=== PATIENT | female | born 1975 | race Two or more races ===

== ENCOUNTER 2020-03-11 00:05 | Emergency (ER) | payer MEDICAID ==
[~2020-03-11] VITALS: Ht 170.2 cm; Wt 70.3 kg
[2020-03-11 03:57] LABS: Basophils # (auto) 0 10 ^3/uL (0-0.2); Basophils % (auto) 0.4 % (0.0-2.0); Eosinophils # (auto) 0.1 10 ^3/uL (0-0.8); Eosinophils % (auto) 1.8 % (0.0-7.0); Hematocrit 38.1 % (36.0-46.0); Hemoglobin 12.7 g/dL (12.2-16.2); Lymphocytes % (auto) 31.4 % (10.0-50.0); Mean Corpuscular Hemoglobin 29.6 pg (28.0-32.0); Mean Corpuscular Hgb Conc. 33.3 g/dL (32.0-36.0); Mean Corpuscular Volume 88.9 fL (80.0-100.0); Monocytes # (auto) 0.5 10 ^3/uL (0-1.3); Monocytes % (auto) 8.3 % (0.0-12.0); Neutrophils # (auto) 3.6 10 ^3/uL (1.6-8.6); Neutrophils % (auto) 58.1 % (37.0-80.0); Nucleated Red Blood Cells % 0.1 %; Platelet Count (auto) 206 10^3/uL (140-450); Red Blood Cells 4.29 10^6/uL (4.0-5.20); Red Cell Distribution Width 13.1 % (11.8-14.3); White Blood Cell 6.2 10^3/uL (4.4-10.8)
[2020-03-11] MEDS ORDERED: cefTRIAXone W LIDOCAINE 1 GM IM IM ONE (08:45)
[2020-03-11] MEDS ORDERED: CLINDAMYCIN 600 MG/4 ML VL IM ONE (08:45)
[2020-03-11] MEDS ORDERED: InsuLIN REG 1unit/0.01ml Soln (100units/ml) SC ONE (08:45)
[2020-03-11] MEDS ORDERED: cefTRIAXone 1GM/50ML D5W 50 ML IV ONE (08:45)
[2020-03-11] MEDS ORDERED: cefTRIAXone SOD 1,000 MG VL ONE (09:23)
[2020-03-11 09:28] LABS: Albumin 3.5 g/dL (3.4-5.0)
[2020-03-11] MEDS ORDERED: LIDOCAINE 1% HCL (LOCAL ANESTH.) INJ 20ML MDV IJ ONE (09:30)
[2020-03-11] MEDS ORDERED: cefTRIAXone SOD 1,000 MG VL IM ONE (09:30)
[2020-03-11 09:31] LABS: BUN/Creatinine Ratio 22.7; Bilirubin, Total 0.4 mg/dL (0.2-1.0); Total Protein 7.9 g/dL (6.4-8.2)
[2020-03-11 09:36] VITALS: BP 106/77
== END 2020-03-11 09:46 | disposition home or self-care (01) ==
LOC: ER 00:08
DX: L03.116 Cellulitis of left lower limb (principal); E11.65 Type 2 diabetes mellitus with hyperglycemia
CPT/HCPCS: 36415; 80053; 82962; 85025; 96372; 99284; J0696; J1815

== ENCOUNTER 2020-05-11 22:07 | Inpatient (IN) | payer MEDICAID ==
[~2020-05-11] VITALS: Ht 160 cm; Wt 65.1 kg
[2020-05-11 22:51] LABS: Basophils # (auto) 0 10 ^3/uL (0-0.2); Basophils % (auto) 0.3 % (0.0-2.0); Eosinophils # (auto) 0.1 10 ^3/uL (0-0.8); Eosinophils % (auto) 0.9 % (0.0-7.0); Hematocrit 36.5 % (36.0-46.0); Hemoglobin 12.5 g/dL (12.2-16.2); Lymphocytes # (auto) 1.1 10 ^3/uL (0.4-5.4); Lymphocytes % (auto) 12.3 % (10.0-50.0); Mean Corpuscular Hemoglobin 29.5 pg (28.0-32.0); Mean Corpuscular Hgb Conc. 34.3 g/dL (32.0-36.0); Monocytes # (auto) 0.6 10 ^3/uL (0-1.3); Neutrophils # (auto) 7.1 10 ^3/uL (1.6-8.6); Neutrophils % (auto) 79.5 % (37.0-80.0); Nucleated Red Blood Cells % 0.1 %; Red Blood Cells 4.24 10^6/uL (4.0-5.20); Red Cell Distribution Width 13.3 % (11.8-14.3); White Blood Cell 8.9 10^3/uL (4.4-10.8)
[2020-05-11] MEDS ORDERED: MORPHINE SULFATE 4 MG/ML SYR/VIAL IV ONE (23:00)
[2020-05-11 23:05] LABS: Urine Bacteria FEW /hpf (None Seen); Urine Blood 1+ /uL (Negative); Urine Specific Gravity 1.023 (1.001-1.035); Urine WBC 788 /hpf (0 - 5); Urine WBC Clumps PRESENT /hpf (None Seen)
[2020-05-11 23:12] LABS: Albumin 3.6 g/dL (3.4-5.0); Potassium 3.8 mmol/L (3.5-5.1)
[2020-05-11 23:16] LABS: BUN/Creatinine Ratio 22.6; Bilirubin, Total 0.7 mg/dL (0.2-1.0); Total Protein 8.4 g/dL (6.4-8.2)
[2020-05-11] MEDS ORDERED: ACETAMINOPHEN 325 MG TAB PO ONE (23:45)
[2020-05-11] MEDS ORDERED: ONDANSETRON HCL 4 MG/2 ML VIAL IV ONE (23:45)
[2020-05-11] MEDS ORDERED: cefTRIAXone 1GM/50ML D5W 50 ML IV ONE (23:45)
[2020-05-12] MEDS ORDERED: DEXTROSE (50%) 50ML SYRG IV PRN ×2 (02:30→12:00)
[2020-05-12] MEDS ORDERED: MORPHINE SULFATE 4 MG/ML SYR/VIAL IV PRN (02:30)
[2020-05-12] MEDS ORDERED: ONDANSETRON HCL 4 MG/2 ML VIAL IV PRN (02:30)
[2020-05-12] MEDS: SODIUM CHLORIDE 0.9% 1,000 ML IV SCH ×2 (02:30→19:10)
[2020-05-12] MEDS ORDERED: NITROGLYCERIN 0.4 MG SL TAB SL PRN (02:30)
[2020-05-12] MEDS ORDERED: MORPHINE SULFATE INJECTION 2 MG/ML SYRG IV PRN (02:30)
[2020-05-12] MEDS: ACCU-CHEK COMFORT CURVE STRIP VI SCH ×4 (03:59→22:00)
[2020-05-12] MEDS: InsuLIN REG 1unit/0.01ml Soln (100units/ml) SC SCH ×4 (03:59→22:00)
[2020-05-12 04:22] VITALS: BP 120/71
[2020-05-12] MEDS ORDERED: INSLISPI SC (06:37)
[2020-05-12] MEDS ORDERED: INFLUENZA QUAD 2020-2021 0.5 ML SYRG IM ONE (06:45)
[2020-05-12] MEDS: PANTOPRAZOLE 40 MG/10 ML VIAL INJ IV SCH (08:34)
[2020-05-12] MEDS: ENOXAPARIN SOD 40 MG/0.4 ML SYRINGE SC SCH (08:34)
[2020-05-12] MEDS: cefTRIAXone 1GM/50ML D5W 50 ML IV SCH (08:34)
[2020-05-12 09:00] VITALS: BP 103/69
[2020-05-12 12:50] VITALS: BP 129/81
[2020-05-12 14:00] VITALS: BP 100/62
[2020-05-12 16:08] VITALS: BP 106/66
[2020-05-12] MEDS: ACETAMINOPHEN 325 MG TAB PO PRN (20:54)
[2020-05-12 22:00] VITALS: BP 133/82
[2020-05-12] MEDS: HYDROcodone-ACET 5/325MG TAB PO PRN (22:32)
[2020-05-13 05:00] VITALS: BP 127/84
[2020-05-13] MEDS: SODIUM CHLORIDE 0.9% 1,000 ML IV SCH ×2 (05:53→11:28)
[2020-05-13] MEDS: ACCU-CHEK COMFORT CURVE STRIP VI SCH ×4 (06:32→21:47)
[2020-05-13] MEDS: InsuLIN REG 1unit/0.01ml Soln (100units/ml) SC SCH ×4 (06:33→21:48)
[2020-05-13 07:33] LABS: Basophils # (auto) 0 10 ^3/uL (0-0.2); Basophils % (auto) 0.1 % (0.0-2.0); Eosinophils # (auto) 0 10 ^3/uL (0-0.8); Eosinophils % (auto) 0.4 % (0.0-7.0); Hematocrit 32.4 % (36.0-46.0); Hemoglobin 10.9 g/dL (12.2-16.2); Lymphocytes # (auto) 0.7 10 ^3/uL (0.4-5.4); Lymphocytes % (auto) 10.5 % (10.0-50.0); Mean Corpuscular Hemoglobin 29.4 pg (28.0-32.0); Mean Corpuscular Hgb Conc. 33.8 g/dL (32.0-36.0); Monocytes # (auto) 0.7 10 ^3/uL (0-1.3); Monocytes % (auto) 11.1 % (0.0-12.0); Neutrophils # (auto) 4.9 10 ^3/uL (1.6-8.6); Neutrophils % (auto) 77.9 % (37.0-80.0); Red Blood Cells 3.72 10^6/uL (4.0-5.20); Red Cell Distribution Width 13.3 % (11.8-14.3); White Blood Cell 6.3 10^3/uL (4.4-10.8)
[2020-05-13 07:53] LABS: Potassium 4.1 mmol/L (3.5-5.1)
[2020-05-13 08:04] LABS: Albumin 2.8 g/dL (3.4-5.0); BUN/Creatinine Ratio 30.6; Bilirubin, Total 0.6 mg/dL (0.2-1.0); Calcium 8.6 mg/dL (8.5-10.1); Total Protein 7.1 g/dL (6.4-8.2)
[2020-05-13] MEDS: cefTRIAXone 1GM/50ML D5W 50 ML IV SCH (08:25)
[2020-05-13 09:00] VITALS: BP 112/68
[2020-05-13] MEDS: ENOXAPARIN SOD 40 MG/0.4 ML SYRINGE SC SCH (09:53)
[2020-05-13] MEDS: PANTOPRAZOLE 40 MG/10 ML VIAL INJ IV SCH (09:53)
[2020-05-13] MEDS: HYDROcodone-ACET 5/325MG TAB PO PRN (12:50)
[2020-05-13 13:00] VITALS: BP 132/79
[2020-05-13] MEDS ORDERED: INSULIN LANTUS (GLARGINE) 1 /0.01ml (100units/ml) SC ONE (13:45)
[2020-05-13] MEDS ORDERED: MAGNESIUM CITRATE SOLUTION 300 ML BTL PO ONE (13:45)
[2020-05-13 17:00] VITALS: BP 126/77
[2020-05-13] MEDS: DOCUSATE SOD 100 MG CAP PO SCH (21:47)
[2020-05-13 22:00] VITALS: BP 135/83
[2020-05-13] MEDS: ACETAMINOPHEN 325 MG TAB PO PRN (23:35)
[2020-05-14 05:00] VITALS: BP 111/60
[2020-05-14] MEDS: ACCU-CHEK COMFORT CURVE STRIP VI SCH ×2 (06:07→11:30)
[2020-05-14] MEDS: SODIUM CHLORIDE 0.9% 1,000 ML IV SCH (06:07)
[2020-05-14] MEDS: InsuLIN REG 1unit/0.01ml Soln (100units/ml) SC SCH ×2 (06:10→11:30)
[2020-05-14 09:00] VITALS: BP 132/73
[2020-05-14] MEDS: cefTRIAXone 1GM/50ML D5W 50 ML IV SCH (09:00)
[2020-05-14] MEDS: DOCUSATE SOD 100 MG CAP PO SCH (09:41)
[2020-05-14] MEDS: ENOXAPARIN SOD 40 MG/0.4 ML SYRINGE SC SCH (09:41)
[2020-05-14] MEDS ORDERED: INSULIN LANTUS (GLARGINE) 1 /0.01ml (100units/ml) SC SCH (10:00)
[2020-05-14 13:54] VITALS: BP 133/75
[2020-05-14] MEDS ORDERED: PANT40TA2 PO (14:25)
[2020-05-14] MEDS ORDERED: NITR100C6 PO (14:25)
[2020-05-14] MEDS ORDERED: INSLANTI SC (14:25)
[2020-05-14 15:38] VITALS: BP 124/85
[2020-05-14 16:43] VITALS: BP 141/85
== END 2020-05-14 16:45 | disposition home or self-care (01) | DRG 720 ==
LOC: ER 22:09 → TELE 22:10 → TELE-EAST 05-12 04:30 → TELE-WESTW 05-12 13:57 → WEST WING 05-13 16:05
PROVIDERS: ADMIT Nurse Practitioner Family; ATTEND Internal Medicine
DX: A41.9 Sepsis, unspecified organism (principal); N10 Acute pyelonephritis; K44.9 Diaphragmatic hernia without obstruction or gangrene; E11.65 Type 2 diabetes mellitus with hyperglycemia; Z20.822 Contact with and (suspected) exposure to COVID-19; Z79.4 Long term (current) use of insulin; Z23 Encounter for immunization; K59.00 Constipation, unspecified
CPT/HCPCS: 36415; 74176; 80053; 81001; 81025; 82150; 82962; 83036; 83605; 83690; 85025; 87040; 87086; 87088; 87186; 87426; 96365; 96375; C9113; G0378; J0696; J1815; J2405

== ENCOUNTER 2020-06-03 23:41 | Emergency (ER) | payer MEDICAID ==
[~2020-06-03] VITALS: Ht 162.6 cm; Wt 65.3 kg
[~2020-06-03 23:41] MED LIST: INSLANTI SC; INSLISPI SC; NITR100C6 PO; PANT40TA2 PO
[2020-06-04 01:40] LABS: Basophils # (auto) 0 10 ^3/uL (0-0.2); Basophils % (auto) 0.3 % (0.0-2.0); Eosinophils # (auto) 0 10 ^3/uL (0-0.8); Eosinophils % (auto) 0.4 % (0.0-7.0); Hematocrit 35.5 % (36.0-46.0); Hemoglobin 11.9 g/dL (12.2-16.2); Lymphocytes # (auto) 0.4 10 ^3/uL (0.4-5.4); Lymphocytes % (auto) 4.3 % (10.0-50.0); Mean Corpuscular Hemoglobin 28.7 pg (28.0-32.0); Mean Corpuscular Hgb Conc. 33.6 g/dL (32.0-36.0); Mean Corpuscular Volume 85.6 fL (80.0-100.0); Monocytes # (auto) 0.6 10 ^3/uL (0-1.3); Monocytes % (auto) 6.2 % (0.0-12.0); Neutrophils # (auto) 8.2 10 ^3/uL (1.6-8.6); Neutrophils % (auto) 88.8 % (37.0-80.0); Red Blood Cells 4.15 10^6/uL (4.0-5.20); Red Cell Distribution Width 13.1 % (11.8-14.3); White Blood Cell 9.2 10^3/uL (4.4-10.8)
[2020-06-04 01:58] LABS: Albumin 3.8 g/dL (3.4-5.0); BUN/Creatinine Ratio 28.2; Potassium 3.9 mmol/L (3.5-5.1)
[2020-06-04 02:00] LABS: Bilirubin, Total 0.8 mg/dL (0.2-1.0); Total Protein 7.9 g/dL (6.4-8.2)
[2020-06-04] MEDS ORDERED: SODIUM CHLORIDE 0.9% 1,000 ML IV ONE (02:00)
[2020-06-04] MEDS ORDERED: MORPHINE SULFATE INJECTION 2 MG/ML SYRG IV ONE (02:15)
[2020-06-04] MEDS ORDERED: ONDANSETRON HCL 4 MG/2 ML VIAL IV ONE (02:15)
[2020-06-04] MEDS ORDERED: levoFLOXacin 750MG 150 ML IV ONE (02:30)
[2020-06-04] MEDS ORDERED: InsuLIN REG 1unit/0.01ml Soln (100units/ml) SC SCH (04:00)
[2020-06-04] MEDS ORDERED: DEXTROSE (50%) 50ML SYRG IV PRN (04:00)
[2020-06-04] MEDS ORDERED: ACCU-CHEK COMFORT CURVE STRIP VI SCH (04:00)
[2020-06-04] MEDS ORDERED: IOHEXOL 300 MG/ML 100ML BOTTLE IJ ONE (04:14)
[2020-06-04 04:58] LABS: Urine Bacteria FEW /hpf (None Seen); Urine Blood TRACE /uL (Negative); Urine Mucus FEW (None Seen); Urine Specific Gravity 1.031 (1.001-1.035); Urine WBC 24 /hpf (0 - 5)
[2020-06-04 06:00] VITALS: BP 103/65
== END 2020-06-04 06:40 | disposition home or self-care (01) ==
LOC: ER 23:41
DX: N10 Acute pyelonephritis (principal); Z32.02 Encounter for pregnancy test, result negative
CPT/HCPCS: 36415; 74177; 80053; 81001; 81025; 82010; 82962; 83605; 85025; 87086; 96365; 96366; 96372; 96375; 99285; J1815; J1956; J2270; J2405; J7030; Q9967; 87088; 87186

== ENCOUNTER 2021-08-14 17:18 | Emergency (ER) | payer MEDICAID ==
[~2021-08-14] VITALS: Ht 157.5 cm; Wt 68.5 kg
[2021-08-14 21:39] VITALS: BP 136/82
== END 2021-08-14 21:53 | disposition home or self-care (01) ==
LOC: ER 17:18
DX: R06.02 Shortness of breath (principal); R05.9 Cough, unspecified; E11.9 Type 2 diabetes mellitus without complications
CPT/HCPCS: 71046

== ENCOUNTER 2022-06-19 18:08 | Emergency (ER) | payer MEDICAID ==
[~2022-06-19] VITALS: Ht 162.6 cm; Wt 69.0 kg
[2022-06-19 19:22] VITALS: BP 164/98
[2022-06-20] MEDS ORDERED: TETANUS-DIPTH-ACEL PERTUSSIS 0.5ML SYR Tdap IM ONE (01:45)
[2022-06-20] MEDS ORDERED: CEPH-510 PO (01:50)
[2022-06-20] MEDS ORDERED: ACET-1158 PO (01:50)
== END 2022-06-20 03:04 | disposition home or self-care (01) ==
LOC: ER 18:08
DX: S61.302A Unspecified open wound of right middle finger with damage to nail, initial encounter (principal); E11.9 Type 2 diabetes mellitus without complications; Z79.4 Long term (current) use of insulin; Z79.899 Other long term (current) drug therapy; W25.XXXA Contact with sharp glass, initial encounter; Y93.89 Activity, other specified; Y92.89 Other specified places as the place of occurrence of the external cause; Y99.8 Other external cause status
CPT/HCPCS: 90471; 90715

== ENCOUNTER 2022-07-09 21:28 | Emergency (ER) | payer MEDICAID ==
[~2022-07-09 21:28] MED LIST changes: +ACET-1158 PO; +CEPH-510 PO
== END 2022-07-09 21:58 | disposition left against medical advice (07) ==
LOC: ER 21:28
DX: M54.9 Dorsalgia, unspecified (principal); Z53.21 Procedure and treatment not carried out due to patient leaving prior to being seen by health care provider

== ENCOUNTER 2023-02-23 20:27 | Emergency (ER) | payer MEDICAID ==
[~2023-02-23] VITALS: Ht 162.6 cm; Wt 71.0 kg
[~2023-02-23 20:27] MED LIST changes: -ACET-1158 PO; +ACET500T58 PO
[2023-02-23 20:46] VITALS: BP 172/76; PULSE 88; RESP 18; O2SAT 98
== END 2023-02-23 21:46 | disposition left against medical advice (07) ==
LOC: ER 20:27
DX: S61.213A Laceration without foreign body of left middle finger without damage to nail, initial encounter (principal); Z53.21 Procedure and treatment not carried out due to patient leaving prior to being seen by health care provider; W26.0XXA Contact with knife, initial encounter; Y93.89 Activity, other specified; Y92.89 Other specified places as the place of occurrence of the external cause; Y99.8 Other external cause status